=== PATIENT | female | born 1965 | race Caucasian/White ===

== ENCOUNTER 2017-02-17 11:09 | Emergency (ER) | payer OTHER ==
[2017-02-17 11:22] VITALS: TEMP 98.5; BMI 25.9
--- NOTE | 2017-02-17 11:29 | PDOC ---
History of Present Illness - General Chief Complaint: Pain, Acute Stated Complaint: STOMACH PAIN,CHEST PAIN Time Seen by Provider: 02/17/17 11:28 - History of Present Illness Initial Comments: 02/17/17 12:48 The patient is a 51 year old female with a history of GERD, anxiety who presents for evaluation of abdominal pain and back pain. The patient reports a 2 month history of intermittent sharp abdominal pain with radiation into her back. She states that she normally follows with her primary care provider in [facility], but has not been able to schedule an appointment and was concerned that she was experiencing continued symptoms prompting her ED visit. She notes that her symptoms have improved over the past 2 months, but she began experiencing left sided flank pain which prompted her visit. She notes that she has been told that she has cysts on her pancreas, with negative work up in the past including a negative endoscopy. She denies any fevers, chills, SOB, chest pain, nausea, vomiting, or changes with urination or bowel movements. Past History - Past Medical History Allergies/Adverse Reactions: Allergies Allergy/AdvReac Type Severity Reaction Status Date / Time No Known Allergies Allergy Verified 02/17/17 11:17 Home Medications: Ambulatory Orders NK [No Known Home Medication] 02/17/17 COPD: No GI Disorders: Yes (GERD) Psychiatric Problems: Yes (ANXIETY) Other medical history: ENDOMETRIOSIS - Surgical History Cholecystectomy: Yes - Suicide/Smoking/Psychosocial Hx Smoking History: Never smoked Review of Systems - Review of Systems Comments:: 02/17/17 12:51 Constitutional: No fevers, chills, fatigue, malaise HEENT: No Rhinorrhea, nasal congestion, visual changes Cardiovascular: No chest pain, syncope, palpitations, lightheadedness Respiratory: No Cough, SOB, Hemoptysis, Gastrointestinal: Abdominal pain. No Nausea, Vomiting, Constipation, Diarrhea, Genitourinary: Flank pain. No Dysuria, Frequency, Urgency, Hesitancy, Hematuria , Musculoskeletal: No Myalgia, arthralgia Skin: No rashes, itching, bruising, pallor Neurologic: No Headache, Dizziness, Numbness, Weakness, or Tingling Psychiatric: No Hallucinations. No SI or HI *Physical Exam - Vital Signs Last Vital Signs Temp Pulse Resp BP Pulse Ox 98.5 F 81 19 142/76 98 02/17/17 11:17 02/17/17 11:17 02/17/17 11:17 02/17/17 11:17 02/17/17 11:17 - Physical Exam Comments: 02/17/17 12:52 General Appearance: Nourished. No Apparent Distress HEENT: EOMI, KIMBERLY. No Pharyngeal Erythema, Tonsillar Exudate, Tonsillar Erythema Neck: No Cervical Lymphadenopathy Respiratory/Chest: Lungs Clear, Normal Breath Sounds. No Crackles, Rales, Rhonchi, Wheezing Cardiovascular: Regular Rhythm, Regular Rate. No Murmur, Gallops, Rubs Gastrointestinal/Abdominal: Normal Bowel Sounds, Soft. Mild epigastric tenderness to palpation. No Guarding, Rebound, Musculoskeletal: No CVA Tenderness Extremity: Normal Capillary Refill Integumentary: Normal Color, Dry, Warm Neurologic: Fully Oriented, Alert, Normal Mood/Affect, Normal Response, ED Treatment Course - LABORATORY CBC & Chemistry Diagram: 02/17/17 12:27 02/17/17 12:27 Medical Decision Making - Medical Decision Making 02/17/17 12:53 The patient is a 51 year old female with a history of GERD, anxiety who presents for evaluation of abdominal pain and back pain. Differential includes but is not limited to: Pancreatitis, gastritis, UTI, kidney stone, infectious, metabolic derangement. Given the patient's symptoms, it is likely her symptoms are due to a chronic gastritis due to her history of GERD. However we will obtain a cbc, cmp, lipase, ua to evaluate for other etiologies and continue to monitor and reassess. 02/17/17 13:32 cbc, cmp, lipase, ua are unremarkable. The patient's symptoms are likely due to her GERD. We will treat her with pepcid and maalox here in the ED and reassess. 02/17/17 14:22 The patient reports significant improvement in her symptoms. She appears clinically well on exam. We are comfortable discharging the patient home at this time with primary care provider and GI follow up. We discussed the results and the plan with the patient who voiced understanding and is agreeable with the plan. *DC/Admit/Observation/Transfer Diagnosis at time of Disposition: GERD (gastroesophageal reflux disease) Qualifiers: Esophagitis presence: esophagitis presence not specified Qualified Code(s): K21.9 - Gastro-esophageal reflux disease without esophagitis - Discharge Dispostion Disposition: HOME Condition at time of disposition: Improved - Referrals Referrals: Aj Castellon MD [Staff Physician] - - Patient Instructions Printed Discharge Instructions: DI for Gastroesophageal Reflux Disease (GERD), DI for Gastritis Additional Instructions: Please return to the ER if you experience concerning or worsening symptoms including worsening abdominal pain, fevers, or difficulty breathing. Your lab results were normal here in the ER. It is important that you call and schedule a follow up appointment with your primary care provider and GI specialist to discuss further management of your symptoms within 1 week. - Post Discharge Activity
--- NOTE | 2017-02-17 12:36 | PDOC ---
Attending Attestation - Resident Resident Name: ShannanBarrington - ED Attending Attestation I have performed the following: I have examined & evaluated the patient, The case was reviewed & discussed with the resident, I agree w/resident's findings & plan, Exceptions are as noted - HPI HPI: 02/17/17 12:25 51y F hx of gerd, anxiety, presents with complaints including intermittent abd pain radiating to back over the past 2 months- it seems to be worse in the epigastrium and radiates up to her throat and her back. It also tends to occur at night when she is aying down. Pt [facility] - is on an antacid that she ran out of a few days ago but refilled - sypmtoms does seem to be better with the antacid meds. Pt states she does not eat sour, spicy, or cafffeinated foods. She does eat just prior to sleeping. Her GI doc is in [place]. pt has a hx of gstirits, had recent endoscopy a fe wnths ago that was normal pr pt. no f/c, cp, sob, n/v, bm changes, urinary sypmtoms. GENERAL: The patient is awake, alert, and fully oriented, Nontoxic - in no acute distress. HEAD: Normocephalic, atraumatic. LUNGS: Breath sounds equal, clear to auscultation bilaterally. No wheezes, no rhonchi, no rales. HEART: Regular rate and rhythm, normal S1 and S2 without murmur, rub or gallop. ABDOMEN: Soft, nontender, normoactive bowel sounds. No guarding, no rebound. . No CVA tenderness 02/17/17 13:40 suspect her sypmtoms are secondary to gastritis consider ddx of kidneystones, panceratitis, acs will obtain bloo dwork, ua ekg to screen for acs will give pepcid/maalox if neg, consider GI fu as outptaient 02/17/17 15:40 pt feeling much improved will dc with pmd fu return precautions were discussed - Physicial Exam PE: 02/19/17 08:18 see above - Medical Decision Making 02/19/17 08:18 laura timmons Heart Score/ECG Review - ECG Impressions Comment:: 02/17/17 12:36 Twelve-lead EKG was performed and reviewed by me. There is normal sinus rhythm with a normal rate. rate of 75 The axis is normal. The intervals are normal. There is normal R wave progression There are no ST or T wave abnormalities. Impression: Normal twelve-lead EKG
[2017-02-17 12:42] LABS: BASO % 0.6 % (0-2.0); EOS % 0.4 % (0-4.5); HEMOGLOBIN 14.8 GM/dL (10.7-15.3); LYMPH % 28.7 % (8-40); MCHC 32.9 g/dl (32.0-36.0); MEAN CELL VOLUME 91.2 fl (80-96); MEAN PLT VOLUME 8.4 fl (7.5-11.1); MONO % 6.1 % (3.8-10.2); NEUT % 64.2 % (42.8-82.8); PLATELET COUNT 279 K/MM3 (134-434); RBC 4.93 M/mm3 (3.60-5.2); RDW 12.7 % (11.6-15.6); WHITE BLOOD COUNT 5.2 K/mm3 (4.0-10.0)
[2017-02-17 12:43] LABS: URINE APPEARANCE SLCLOUDY; URINE BILIRUBIN NEGATIVE (NEGATIVE); URINE BLOOD 1+ (NEGATIVE); URINE COLOR LTYELLOW; URINE GLUCOSE (UA) NEGATIVE (NEGATIVE); URINE KETONE NEGATIVE (NEGATIVE); URINE LEUK ESTERASE TRACE (NEGATIVE); URINE NITRITE NEGATIVE (NEGATIVE); URINE PROTEIN NEGATIVE (NEGATIVE); URINE UROBILINOGEN NEGATIVE mg/dL (0.2-1.0)
[2017-02-17 13:03] LABS: ALK PHOS 68 U/L (45-117); ANION GAP 7 (8-16); BILIRUBIN,TOTAL 0.4 mg/dL (0.2-1.0); BLOOD UREA NITROGEN 8 mg/dL (7-18); CALCIUM 9.3 mg/dL (8.5-10.1); CHLORIDE 102 mmol/L (98-107); CO2 30 mmol/L (21-32); CREATININE 0.9 mg/dL (0.55-1.02); GLUCOSE,RANDOM 97 mg/dL (74-106); LIPASE 135 U/L (73-393); POTASSIUM 4.1 mmol/L (3.5-5.1); SGOT/AST 21 U/L (15-37); SGPT/ALT 34 U/L (12-78); SODIUM 139 mmol/L (136-145); TOT PROT 7.5 g/dl (6.4-8.2)
[2017-02-17 13:09] LABS: EPI CELLS RARE /HPF (FEW); URINE MUCUS RARE
[2017-02-17] MEDS ORDERED: FAMOTIDINE 20 MG/50 ML IVPB 20 MG/50 ML MG IVPB ONE (13:31)
[2017-02-17] MEDS ORDERED: MAG HYDROX/AL HYDROX/SIMETH 30 ML UNIT-DOSE CUP PO ONE (13:32)
[2017-02-17] MEDS ORDERED: MAG HYDROX/AL HYDROX/SIMETH 30 ML UNIT-DOSE CUP ONE (13:46)
[2017-02-17 14:34] VITALS: BP 132/78; PULSE 78
--- NOTE | 2017-02-18 17:15 | EKG ---
Test Reason : Blood Pressure : / mmHG Vent. Rate : 075 BPM Atrial Rate : 075 BPM P-R Int : 162 ms QRS Dur : 086 ms QT Int : 364 ms P-R-T Axes : 069 088 068 degrees QTc Int : 406 ms NORMAL SINUS RHYTHM NORMAL ECG NO PREVIOUS ECGS AVAILABLE Confirmed by MALIKA ESPINOZA MD ([id number]) on 02/18/2017 5:14:54 PM Referred By: Confirmed By:MALIKA ESPINOZA MD
== END 2017-02-17 14:25 | disposition home or self-care (01) ==
LOC: JER 11:09
PROC: 3E033GC Introduction of Other Therapeutic Substance into Peripheral Vein, Percutaneous Approach (ICD-10-PCS; principal; 2017-02-17)
DX: K21.9 Gastro-esophageal reflux disease without esophagitis (principal)
CPT/HCPCS: 36415; 80053; 81003; 81015; 82150; 83690; 85025; 93005; 93010; 99282-25